=== PATIENT | male | born 1965 | race Two or more races ===

== ENCOUNTER 2017-07-25 20:43 | Inpatient (IN) | payer MEDICAID ==
[~2017-07-25] VITALS: Ht 162.6 cm; Wt 71.8 kg
[2017-07-25] MEDS ORDERED: octreotide inj. 1,250 MCG in normal saline 250ml IV soln 250 ML IV ONE (20:50)
[2017-07-25] MEDS ORDERED: pantoprazole 40 MG vial IV ONE (20:50)
[2017-07-25] MEDS ORDERED: normal saline 1000ML IV soln IV ONE (20:50)
[2017-07-25] MEDS ORDERED: octreotide 100mcg/1 ml ampule IV ONE (21:05)
[2017-07-25 21:13] LABS: BASOPHILS % (AUTO) 0.4 % (0-1); EOSINOPHILS # (AUTO) 0.2 X10'3 (0-0.9); EOSINOPHILS % (AUTO) 2.4 % (0-6); HEMOGLOBIN 7.1 g/dl (14.0-17.9); LYMPHOCYTES # (AUTO) 3.5 X10'3 (1.1-4.8); LYMPHOCYTES % (AUTO) 39.1 % (21-51); MEAN CORPUSCULAR HEMOGLOBIN 28.1 PG (27.0-31.0); MEAN CORPUSCULAR HGB CONC 32.4 % (33.0-36.5); MEAN CORPUSCULAR VOLUME 86.6 FL (78-98); MEAN PLATELET VOLUME 10.1 FL (7.4-10.4); MONOCYTES # (AUTO) 0.7 X10'3 (0-0.9); NEUTROPHILS # (AUTO) 4.5 X10'3 (1.8-7.7); NEUTROPHILS % (AUTO) 50.1 % (42-75); PLATELET COUNT 108 X10'3 (140-440); RED BLOOD COUNT 2.51 X10'6 (4.70-6.10); RED CELL DISTRIBUTION WIDTH 29.2 % (11.5-14.5); WHITE BLOOD COUNT 8.9 X10'3 (4.5-11.0)
[2017-07-25 21:22] LABS: HEMATOCRIT 21.8 % (42.0-52.0)
[2017-07-25] MEDS ORDERED: succinylcholine 20mg/ml inj IV ONE (21:23)
[2017-07-25 21:30] LABS: ALANINE AMINOTRANSFERASE 18 U/L (12-78); ALBUMIN/GLOBULIN RATIO 0.4 (1.1-1.5); ALKALINE PHOSPHATASE 146 IU/L (46-116); ANION GAP 10 (8-16); ASPARTATE AMINO TRANSFERASE 27 U/L (10-37); BILIRUBIN,TOTAL 1.6 MG/DL (0.1-1.0); BLOOD UREA NITROGEN 16 MG/DL (7-18); CALCIUM 7.9 MG/DL (8.5-10.1); CHLORIDE 106 MMOL/L (99-107); CREATININE 0.84 MG/DL (0.60-1.10); GLUCOSE 171 MG/DL (70-104); POTASSIUM 4.4 MMOL/L (3.5-5.1); SODIUM 138 MMOL/L (135-145); TOTAL CARBON DIOXIDE 22.4 MMOL/L (24-32); TOTAL PROTEIN 6.6 G/DL (6.4-8.2); eGFR > 90 ML/MIN
[2017-07-25] MEDS ORDERED: midazolam 100mg in NS 100ml 100 ML IV PRN ×2 (21:40→22:43)
[2017-07-25] MEDS ORDERED: etomidate 2mg/ml inj. IV ONE ×2 (22:15)
[2017-07-25] MEDS ORDERED: fentaNYL/PF 50MCG/1 ML 2ML syringe ONE (22:17)
[2017-07-25] MEDS ORDERED: MIDAZolam 5mg/ml 2ml vial ONE (22:18)
[2017-07-25] MEDS ORDERED: epiNEPHrine 0.1mg/ml 10ml syringe ONE (22:18)
[2017-07-25] MEDS: NORepinephrine 8mg/ 250ml NS 250 ML IV SCH (22:24)
[2017-07-25 22:30] LABS: ABG BASE EXCESS -10.7 mmol/L (-2.0-3.0); ABG OXYGEN SATURATION 98.7 % (95-98); ABG PCO2 (T) 32.1 mmHg (35.0-48.0); ABG PH (T) 7.286 (7.350-7.450); ABG PO2 (T) 180.3 mmHg (83-108); FCOHb 0.6 % (0.5-1.5); FMetHb 0.1 % (0.3-1.12); MINUTE VOLUME 15 L/min; PATIENT TEMPERATURE 36.7; PEEP 5 cm H2O; RESPIRATORY RATE 163 b/min; RESPIRATORY RATE (OBSERVED) 25 b/min; TIDAL VOLUME 425 mL; TOTAL HEMOGLOBIN 8.7 G/dl (14.0-18.0)
[2017-07-25 22:35] VITALS: BP 111/80
[2017-07-25] MEDS ORDERED: ondansetron/PF 4mg/2ml inj IV PRN (22:35)
[2017-07-25] MEDS ORDERED: potassium Cl 40MEQ/250ML bag 250 ML IV PRN (22:35)
[2017-07-25] MEDS: K, MAG and/or Phos replacement - Verify level? MC SCH (22:35)
[2017-07-25] MEDS ORDERED: potassium Cl 20 mEq SR tablet PO PRN ×2 (22:35)
[2017-07-25] MEDS ORDERED: morphine 2 MG/ML inj. syringe IV PRN ×2 (22:35)
[2017-07-25] MEDS ORDERED: potassium Cl 40MEQ/250ML bag 250 ML IV SCH (22:35)
[2017-07-25] MEDS: normal saline 1000ml 1,000 ML IV SCH (22:35)
[2017-07-25] MEDS ORDERED: acetaminophen 325mg tablet PO PRN ×2 (22:35)
[2017-07-25 22:42] LABS: CLARITY,URINE SLIGHTLY CLOUDY (Clear); COLOR,URINE YELLOW (Yellow); GLUCOSE, URINE NEGATIVE (Neg); KETONES,URINE TRACE mg/dl (Neg); LEUKOCYTE ESTERASE ,URINE NEGATIVE (Neg); NITRITES, URINE NEGATIVE (Neg); OCCULT BLOOD,URINE SMALL (Neg); PROTEIN,URINE 30 mg/dl (Neg); UROBILINOGEN,URINE 0.2 E.U/dL (0.2-1.0)
[2017-07-25] MEDS ORDERED: FENTANYL-0.9 % NACL/PF 100 ML IV PRN (22:43)
[2017-07-25 22:44] LABS: UA COLLECTION TYPE FOLEY CATH
[2017-07-25] MEDS ORDERED: ipratropium/albuterol 3ml nebule NEB PRN (22:45)
[2017-07-25 22:51] LABS: INR 1.7 INR; PARTIAL THROMBOPLASTIN TIME 42 SECONDS (22-32); PROTHROMBIN TIME 17.2 SECONDS (9.0-12.0)
[2017-07-25 22:57] LABS: WBC,URINE 0-4 /HPF (0-4)
[2017-07-25 22:58] LABS: MUCUS STRANDS MODERATE /LPF (Neg); SPERM MODERATE /HPF (NEGATIVE)
[2017-07-25 22:59] LABS: SQUAMOUS EPITHELIAL CELL,UR NONE SEEN /LPF (FEW); TRANSITIONAL EPI CELLS,URINE FEW /HPF
[2017-07-25 23:01] LABS: AMORPHOUS URATES 2+; BACTERIA,URINE NONE SEEN /HPF (Neg); HYALINE CASTS 0-3 /LPF (NEGATIVE)
[2017-07-25 23:12] LABS: ANISOCYTOSIS 3+; ELLIPTOCYTES FEW; PLATELET ESTIMATE DECREASED; POLYCHROMASIA FEW
[2017-07-25] MEDS ORDERED: tranexamic acid inj. 1,000 MG in normal saline 100ml IV soln 90 ML IV ONE (23:15)
[2017-07-25] MEDS ORDERED: tranexamic acid 100mg/ml inj. ONE (23:16)
[2017-07-25 23:21] VITALS: BP 54/32
[2017-07-25 23:26] LABS: RENAL CELLS, URINE MODERATE /HPF
[2017-07-25 23:30] VITALS: BP 89/57
[2017-07-25 23:35] VITALS: BP 93/64
[2017-07-25 23:44] VITALS: BP 110/78
[2017-07-25 23:52] VITALS: BP 112/81
[2017-07-26] VITALS (27 sets, daily range): BP systolic 61–164; BP diastolic 39–111
[2017-07-26 00:08] LABS: HEMATOCRIT 33.1 % (42.0-52.0); HEMOGLOBIN 11.2 g/dl (14.0-17.9); MEAN CORPUSCULAR HEMOGLOBIN 29.6 PG (27.0-31.0); MEAN CORPUSCULAR HGB CONC 33.7 % (33.0-36.5); MEAN CORPUSCULAR VOLUME 87.8 FL (78-98); MEAN PLATELET VOLUME 9.8 FL (7.4-10.4); PLATELET COUNT 54 X10'3 (140-440); RED BLOOD COUNT 3.78 X10'6 (4.70-6.10); RED CELL DISTRIBUTION WIDTH 16.2 % (11.5-14.5); WHITE BLOOD COUNT 16.6 X10'3 (4.5-11.0)
[2017-07-26 01:59] LABS: HEMATOCRIT 29.9 % (42.0-52.0); HEMOGLOBIN 10.3 g/dl (14.0-17.9); MEAN CORPUSCULAR HGB CONC 34.5 % (33.0-36.5); MEAN CORPUSCULAR VOLUME 86.8 FL (78-98); MEAN PLATELET VOLUME 8.3 FL (7.4-10.4); PLATELET COUNT 153 X10'3 (140-440); RED BLOOD COUNT 3.44 X10'6 (4.70-6.10); RED CELL DISTRIBUTION WIDTH 15.8 % (11.5-14.5); WHITE BLOOD COUNT 23.8 X10'3 (4.5-11.0)
[2017-07-26] MEDS ORDERED: piperacillin/tazo 3.375gm/50ml 50 ML IV SCH (02:00)
[2017-07-26] MEDS: acetaminophen 650mg rectal suppository RC PRN (02:02)
[2017-07-26 02:15] LABS: ALANINE AMINOTRANSFERASE 45 U/L (12-78); ALBUMIN 1.9 G/DL (3.4-5.0); ALKALINE PHOSPHATASE 106 IU/L (46-116); ASPARTATE AMINO TRANSFERASE 85 U/L (10-37); BILIRUBIN,TOTAL 4.4 MG/DL (0.1-1.0); BLOOD UREA NITROGEN 20 MG/DL (7-18); BUN/CREATININE RATIO 15.5 (5.4-32.0); CALCIUM 6.7 MG/DL (8.5-10.1); CHLORIDE 109 MMOL/L (99-107); CREATININE 1.29 MG/DL (0.60-1.10); GLUCOSE 162 MG/DL (70-104); MAGNESIUM 1.4 MG/DL (1.5-2.4); TOTAL CARBON DIOXIDE 18.2 MMOL/L (24-32); eGFR 59 ML/MIN
[2017-07-26 02:28] LABS: ALBUMIN/GLOBULIN RATIO 0.5 (1.1-1.5); ANION GAP 8 (8-16); PHOSPHORUS 5.2 MG/DL (2.3-4.5); SODIUM 135 MMOL/L (135-145); TOTAL PROTEIN 5.6 G/DL (6.4-8.2)
[2017-07-26 02:32] LABS: POTASSIUM 7.4 MMOL/L (3.5-5.1)
[2017-07-26 03:00] LABS: TOTAL CELLS COUNTED 100
[2017-07-26 03:05] LABS: ANISOCYTOSIS 1+; BURR CELLS 1+; PLATELET ESTIMATE NORMAL; POLYCHROMASIA 2+
[2017-07-26 03:06] LABS: LARGE PLATELETS FEW
[2017-07-26 03:09] LABS: ALANINE AMINOTRANSFERASE 45 U/L (12-78); ALBUMIN 1.6 G/DL (3.4-5.0); ALKALINE PHOSPHATASE 91 IU/L (46-116); ANION GAP 12 (8-16); ASPARTATE AMINO TRANSFERASE 81 U/L (10-37); BILIRUBIN,TOTAL 4.4 MG/DL (0.1-1.0); BLOOD UREA NITROGEN 22 MG/DL (7-18); BUN/CREATININE RATIO 16.5 (5.4-32.0); CHLORIDE 112 MMOL/L (99-107); CREATININE 1.33 MG/DL (0.60-1.10); GLUCOSE 116 MG/DL (70-104); SODIUM 140 MMOL/L (135-145); TOTAL CARBON DIOXIDE 16.5 MMOL/L (24-32); eGFR 57 ML/MIN
[2017-07-26 03:14] LABS: POTASSIUM 6.2 MMOL/L (3.5-5.1)
[2017-07-26 03:15] LABS: ALBUMIN/GLOBULIN RATIO 0.6 (1.1-1.5); TOTAL PROTEIN 4.4 G/DL (6.4-8.2)
[2017-07-26] MEDS ORDERED: dextrose 50%-water 50ml dispensing syringe IV ONE ×4 (03:30→21:55)
[2017-07-26] MEDS ORDERED: insulin regular, human 10 units/0.1 ml syringe IV ONE ×2 (03:30→21:55)
[2017-07-26] MEDS ORDERED: calcium chloride 100 MG/1 ML inj IV ONE ×2 (03:30→05:24)
[2017-07-26] MEDS ORDERED: sodium bicarbonate (8.4%) 1 mEq/ml syringe IV ONE ×2 (03:30→21:55)
[2017-07-26 04:15] LABS: ABG BASE EXCESS -11.6 mmol/L (-2.0-3.0); ABG OXYGEN SATURATION 97.5 % (95-98); ABG PCO2 (T) 27.9 mmHg (35.0-48.0); ABG PH (T) 7.295 (7.350-7.450); ABG PO2 (T) 122.3 mmHg (83-108); ALLEN'S TEST Positive; FCOHb 0.3 % (0.5-1.5); FMetHb 0.3 % (0.3-1.12); FO2Hb 96.9 % (94-100); MINUTE VOLUME 12 L/min; PATIENT TEMPERATURE 38.9; PEEP 5 cm H2O; RESPIRATORY RATE 16 b/min; RESPIRATORY RATE (OBSERVED) 20 b/min; TOTAL HEMOGLOBIN 10.5 G/dl (14.0-18.0)
[2017-07-26 05:00] LABS: HEMATOCRIT 25.3 % (42.0-52.0); HEMOGLOBIN 8.7 g/dl (14.0-17.9); MEAN CORPUSCULAR HGB CONC 34.3 % (33.0-36.5); MEAN CORPUSCULAR VOLUME 87.5 FL (78-98); MEAN PLATELET VOLUME 8.5 FL (7.4-10.4); PLATELET COUNT 122 X10'3 (140-440); RED BLOOD COUNT 2.89 X10'6 (4.70-6.10); RED CELL DISTRIBUTION WIDTH 16.1 % (11.5-14.5)
[2017-07-26 05:04] LABS: WHITE BLOOD COUNT 31.2 X10'3 (4.5-11.0)
[2017-07-26] MEDS ORDERED: hydrocortisone sod succ/PF 100mg/2ml inj. IV ONE (05:35)
[2017-07-26] MEDS ORDERED: NORepinephrine 8mg/ 250ml NS 250 ML IV SCH (05:40)
[2017-07-26] MEDS ORDERED: diphenhydrAMINE 50 mg/ml inj IV ONE (05:40)
[2017-07-26] MEDS: octreotide inj. 1,250 MCG in normal saline 250ml IV soln 243.75 ML IV SCH ×2 (06:30→20:51)
[2017-07-26] MEDS: lactobacillus rhamnosus 10,000 MMU CELLS/CAPSULE PO SCH ×2 (07:30→16:14)
[2017-07-26] MEDS: K, MAG and/or Phos replacement - Verify level? MC SCH (08:00)
[2017-07-26] MEDS: normal saline 1000ml 1,000 ML IV SCH ×2 (08:35→18:35)
[2017-07-26] MEDS: metroNIDAZOLE-Flagyl 500mg/NS 100 ML IV SCH ×2 (09:37→16:13)
[2017-07-26] MEDS: NORepinephrine 8mg/ 250ml NS 250 ML IV SCH ×2 (10:00→20:51)
[2017-07-26] MEDS ORDERED: LIDOcaine 1%/PF (10mg/ml) 5ml vial ONE (11:02)
[2017-07-26] MEDS ORDERED: iohexol 300 MG/1 ML 50ml polymer ONE (11:02)
[2017-07-26 11:34] LABS: HEMATOCRIT 27.3 % (42.0-52.0); HEMOGLOBIN 9.5 g/dl (14.0-17.9); MEAN CORPUSCULAR HEMOGLOBIN 30.4 PG (27.0-31.0); MEAN CORPUSCULAR HGB CONC 34.7 % (33.0-36.5); MEAN CORPUSCULAR VOLUME 87.4 FL (78-98); MEAN PLATELET VOLUME 8.7 FL (7.4-10.4); PLATELET COUNT 161 X10'3 (140-440); RED BLOOD COUNT 3.12 X10'6 (4.70-6.10)
[2017-07-26 11:43] LABS: ALBUMIN 1.8 G/DL (3.4-5.0); ANION GAP 14 (8-16); BLOOD UREA NITROGEN 28 MG/DL (7-18); BUN/CREATININE RATIO 11.6 (5.4-32.0); CALCIUM 8.3 MG/DL (8.5-10.1); CHLORIDE 113 MMOL/L (99-107); CREATININE 2.41 MG/DL (0.60-1.10); GLUCOSE 87 MG/DL (70-104); POTASSIUM 6.7 MMOL/L (3.5-5.1); SODIUM 141 MMOL/L (135-145); TOTAL CARBON DIOXIDE 14.5 MMOL/L (24-32); eGFR 29 ML/MIN
[2017-07-26 14:56] LABS: HEMOGLOBIN A1C 5.1 % (4.5-6.2)
[2017-07-26] MEDS: levoFLOXACIN-Levaquin 750MG/D5 150 ML IV SCH (16:13)
[2017-07-26] MEDS ORDERED: dextrose 5%-water 1,000 ML IV SCH (16:55)
[2017-07-26 20:51] LABS: BASOPHILS % (AUTO) 0 % (0-1); EOSINOPHILS % (AUTO) 0 % (0-6); LYMPHOCYTES # (AUTO) 3.5 X10'3 (1.1-4.8); LYMPHOCYTES % (AUTO) 6.2 % (21-51); MEAN CORPUSCULAR HEMOGLOBIN 30.3 PG (27.0-31.0); MEAN CORPUSCULAR HGB CONC 34.6 % (33.0-36.5); MEAN CORPUSCULAR VOLUME 87.7 FL (78-98); MEAN PLATELET VOLUME 9.1 FL (7.4-10.4); MONOCYTES # (AUTO) 3.1 X10'3 (0-0.9); MONOCYTES % (AUTO) 5.5 % (2-12); NEUTROPHILS # (AUTO) 49.9 X10'3 (1.8-7.7); NEUTROPHILS % (AUTO) 88.3 % (42-75); PLATELET COUNT 187 X10'3 (140-440); RED BLOOD COUNT 3.31 X10'6 (4.70-6.10); RED CELL DISTRIBUTION WIDTH 16.7 % (11.5-14.5)
[2017-07-26 21:02] LABS: WHITE BLOOD COUNT 56.5 X10'3 (4.5-11.0)
[2017-07-26 21:20] LABS: TOTAL CELLS COUNTED 100
[2017-07-26 21:21] LABS: ANISOCYTOSIS 1+; BURR CELLS 1+; PLATELET ESTIMATE NORMAL
[2017-07-26 21:22] LABS: ACANTHOCYTES FEW; POLYCHROMASIA 2+; SCHISTOCYTES FEW
[2017-07-26 21:24] LABS: ALANINE AMINOTRANSFERASE 156 U/L (12-78); ALBUMIN 1.8 G/DL (3.4-5.0); ALKALINE PHOSPHATASE 76 IU/L (46-116); ANION GAP 21 (8-16); ASPARTATE AMINO TRANSFERASE 318 U/L (10-37); BILIRUBIN,TOTAL 5.9 MG/DL (0.1-1.0); BLOOD UREA NITROGEN 36 MG/DL (7-18); BUN/CREATININE RATIO 14.8 (5.4-32.0); CALCIUM 8.4 MG/DL (8.5-10.1); CHLORIDE 110 MMOL/L (99-107); CREATININE 2.44 MG/DL (0.60-1.10); GLUCOSE 98 MG/DL (70-104); MAGNESIUM 1.4 MG/DL (1.5-2.4); SODIUM 140 MMOL/L (135-145); eGFR 28 ML/MIN
[2017-07-26 21:42] LABS: ALBUMIN/GLOBULIN RATIO 0.5 (1.1-1.5); PHOSPHORUS 5.9 MG/DL (2.3-4.5); TOTAL PROTEIN 5.3 G/DL (6.4-8.2)
[2017-07-26 21:45] LABS: POTASSIUM 7.7 MMOL/L (3.5-5.1)
[2017-07-26 21:46] LABS: TOTAL CARBON DIOXIDE 9.4 MMOL/L (24-32)
[2017-07-26] MEDS ORDERED: CALCIUM GLUCONATE 1 GM in NORMAL SALINE 100ml IV.SOLN IV ONE (22:05)
[2017-07-26] MEDS: sodium bicarbonate (8.4%) inj. 150 MEQ in dextrose 5%-water 1,000 ML IV SCH (22:30)
[2017-07-27] VITALS (16 sets, daily range): BP systolic 41–127; BP diastolic 29–78
[2017-07-27] MEDS: metroNIDAZOLE-Flagyl 500mg/NS 100 ML IV SCH ×2 (00:34→07:49)
[2017-07-27] MEDS: mineral oil/petrolatum ophthal oint EACHEYE SCH ×2 (02:00→07:52)
[2017-07-27 02:21] LABS: ABG BASE EXCESS -15.9 mmol/L (-2.0-3.0); ABG HCO3 7.7 mmol/L (22.0-26.0); ABG OXYGEN SATURATION 95.7 % (95-98); ABG PCO2 (T) 15.1 mmHg (35.0-48.0); ABG PO2 (T) 92.5 mmHg (83-108); ALLEN'S TEST Positive; FCOHb 0.3 % (0.5-1.5); FMetHb 0.5 % (0.3-1.12); FO2Hb 94.9 % (94-100); MINUTE VOLUME 20 L/min; PEEP 5 cm H2O; RESPIRATORY RATE (OBSERVED) 30 b/min
[2017-07-27 02:24] LABS: HEMOGLOBIN 8.7 g/dl (14.0-17.9); MEAN CORPUSCULAR VOLUME 90.3 FL (78-98)
[2017-07-27 02:27] LABS: HEMATOCRIT 25.5 % (42.0-52.0); MEAN CORPUSCULAR HEMOGLOBIN 30.7 PG (27.0-31.0); MEAN PLATELET VOLUME 9.5 FL (7.4-10.4); PLATELET COUNT 155 X10'3 (140-440); RED BLOOD COUNT 2.82 X10'6 (4.70-6.10)
[2017-07-27 02:39] LABS: ALANINE AMINOTRANSFERASE 231 U/L (12-78); ALBUMIN 1.6 G/DL (3.4-5.0); ALKALINE PHOSPHATASE 67 IU/L (46-116); ANION GAP 23 (8-16); ASPARTATE AMINO TRANSFERASE 494 U/L (10-37); BILIRUBIN,TOTAL 5.5 MG/DL (0.1-1.0); BLOOD UREA NITROGEN 40 MG/DL (7-18); BUN/CREATININE RATIO 16.3 (5.4-32.0); CALCIUM 8.1 MG/DL (8.5-10.1); CHLORIDE 109 MMOL/L (99-107); CREATININE 2.45 MG/DL (0.60-1.10); GLUCOSE 104 MG/DL (70-104); MAGNESIUM 1.4 MG/DL (1.5-2.4); SODIUM 143 MMOL/L (135-145); eGFR 28 ML/MIN
[2017-07-27] MEDS ORDERED: LORazepam 2 mg/ml vial ONE ×4 (02:45→03:03)
[2017-07-27 02:46] LABS: WHITE BLOOD COUNT 47.5 X10'3 (4.5-11.0)
[2017-07-27] MEDS ORDERED: albuterol 2.5 MG/3 ML nebule ONE (02:48)
[2017-07-27 02:51] LABS: POTASSIUM 7.3 MMOL/L (3.5-5.1)
[2017-07-27] MEDS ORDERED: levetiracetam 100mg/ml inj IV ONE (02:57)
[2017-07-27 03:03] LABS: ALBUMIN/GLOBULIN RATIO 0.5 (1.1-1.5); PHOSPHORUS 6.3 MG/DL (2.3-4.5); TOTAL PROTEIN 4.6 G/DL (6.4-8.2)
[2017-07-27 03:04] LABS: NUCLEATED RED BLOOD CELLS 1 /100WBC (0-0); TOTAL CELLS COUNTED 100
[2017-07-27 03:05] LABS: ANISOCYTOSIS 1+; PLATELET ESTIMATE NORMAL
[2017-07-27 03:06] LABS: BURR CELLS 2+; POLYCHROMASIA 2+
[2017-07-27] MEDS: acetaminophen 650mg rectal suppository RC PRN (03:13)
[2017-07-27 03:21] LABS: INR 3.4 INR
[2017-07-27 03:24] LABS: PARTIAL THROMBOPLASTIN TIME 113 SECONDS (22-32)
[2017-07-27 05:34] LABS: HEMATOCRIT 24.9 % (42.0-52.0); HEMOGLOBIN 8.5 g/dl (14.0-17.9); MEAN CORPUSCULAR HEMOGLOBIN 30.2 PG (27.0-31.0); MEAN CORPUSCULAR HGB CONC 34.1 % (33.0-36.5); MEAN CORPUSCULAR VOLUME 88.3 FL (78-98); MEAN PLATELET VOLUME 9.3 FL (7.4-10.4); PLATELET COUNT 122 X10'3 (140-440); RED BLOOD COUNT 2.82 X10'6 (4.70-6.10); RED CELL DISTRIBUTION WIDTH 16.4 % (11.5-14.5)
[2017-07-27 06:29] LABS: INR 3.2 INR; PROTHROMBIN TIME 31.4 SECONDS (9.0-12.0)
[2017-07-27] MEDS ORDERED: epiNEPHrine inj 5 MG, calcium chloride inj. 1,000 MG in normal saline 250ml IV soln 235 ML IV PRN (06:40)
[2017-07-27 06:50] LABS: PARTIAL THROMBOPLASTIN TIME 121 SECONDS (22-32)
[2017-07-27 07:15] LABS: CHLORIDE 110 MMOL/L (99-107); GLUCOSE 117 MG/DL (70-104); SODIUM 145 MMOL/L (135-145)
[2017-07-27 07:16] LABS: ALANINE AMINOTRANSFERASE 360 U/L (12-78); ALBUMIN 1.3 G/DL (3.4-5.0); ALKALINE PHOSPHATASE 84 IU/L (46-116); ANION GAP 25 (8-16); ASPARTATE AMINO TRANSFERASE 871 U/L (10-37); BILIRUBIN,TOTAL 4.8 MG/DL (0.1-1.0); BLOOD UREA NITROGEN 40 MG/DL (7-18); BUN/CREATININE RATIO 14.5 (5.4-32.0); CALCIUM 8.9 MG/DL (8.5-10.1); CREATININE 2.76 MG/DL (0.60-1.10); MAGNESIUM 1.7 MG/DL (1.5-2.4); eGFR 24 ML/MIN
[2017-07-27 07:18] LABS: PHOSPHORUS 8.8 MG/DL (2.3-4.5)
[2017-07-27 07:19] LABS: ALBUMIN/GLOBULIN RATIO 0.5 (1.1-1.5); POTASSIUM 7.2 MMOL/L (3.5-5.1)
[2017-07-27] MEDS: lactobacillus rhamnosus 10,000 MMU CELLS/CAPSULE PO SCH (07:30)
[2017-07-27] MEDS ORDERED: sodium bicarbonate (8.4%) 1 mEq/ml syringe IV ONE (07:45)
[2017-07-27] MEDS: normal saline 1000ml 1,000 ML IV SCH (07:49)
[2017-07-27] MEDS: levoFLOXACIN-Levaquin 750MG/D5 150 ML IV SCH ×2 (07:49→09:25)
[2017-07-27] MEDS: K, MAG and/or Phos replacement - Verify level? MC SCH (08:00)
[2017-07-27] MEDS: NORepinephrine 8mg/ 250ml NS 250 ML IV SCH (08:11)
[2017-07-27] MEDS ORDERED: LORazepam 2 mg/ml vial IV PRN (09:10)
[2017-07-27] MEDS ORDERED: morphine 4 MG/ML inj SYRINge IV PRN (09:10)
[2017-07-27] MEDS: sodium bicarbonate (8.4%) inj. 150 MEQ in dextrose 5%-water 1,000 ML IV SCH (09:35)
== END 2017-07-27 12:54 | disposition expired | DRG 242 ==
LOC: ER 20:44 → ED HOLD 22:35 → CICU 2S 07-26 00:31
PROVIDERS: ADMIT Internal Medicine Critical Care Medicine
PROC: 06L38CZ Occlusion of Esophageal Vein with Extraluminal Device, Via Natural or Artificial Opening Endoscopic (ICD-10-PCS; principal; 2017-07-25)
PROC: 5A1945Z Respiratory Ventilation, 24-96 Consecutive Hours (ICD-10-PCS; 2017-07-25)
PROC: 30233K1 Transfusion of Nonautologous Frozen Plasma into Peripheral Vein, Percutaneous Approach (ICD-10-PCS; 2017-07-25)
PROC: 30233N1 Transfusion of Nonautologous Red Blood Cells into Peripheral Vein, Percutaneous Approach (ICD-10-PCS; 2017-07-25)
PROC: 02HV33Z Insertion of Infusion Device into Superior Vena Cava, Percutaneous Approach (ICD-10-PCS; 2017-07-25)
PROC: 0BH17EZ Insertion of Endotracheal Airway into Trachea, Via Natural or Artificial Opening (ICD-10-PCS; 2017-07-25)
PROC: 30233R1 Transfusion of Nonautologous Platelets into Peripheral Vein, Percutaneous Approach (ICD-10-PCS; 2017-07-26)
DX: I85.01 Esophageal varices with bleeding (principal); J96.00 Acute respiratory failure, unspecified whether with hypoxia or hypercapnia; K72.01 Acute and subacute hepatic failure with coma; R57.1 Hypovolemic shock; I81 Portal vein thrombosis; E87.5 Hyperkalemia; K76.6 Portal hypertension; N17.9 Acute kidney failure, unspecified; I46.9 Cardiac arrest, cause unspecified; D64.9 Anemia, unspecified; E11.9 Type 2 diabetes mellitus without complications; I10 Essential (primary) hypertension; F10.20 Alcohol dependence, uncomplicated; K70.30 Alcoholic cirrhosis of liver without ascites; K72.10 Chronic hepatic failure without coma; Z51.5 Encounter for palliative care; Z88.0 Allergy status to penicillin
CPT/HCPCS: 36415; 36556; 36600; 43244; 71045; 80048; 80053; 81001; 82140; 82803; 82948; 83036; 83735; 84100; 85018; 85025; 85027; 85384; 85610; 85730; 86885; 86900; 86901; 86920; 87070; 93005; 93975; 94002; 94003; 94640; 94760; 96365; 96375; 99291; 99292; A6213; A7015; C1751; C1758; C9113; J0171; J0330; J0610; J1200; J1720; J1815; J1953; J1956; J2001; J2060; J2250; J2354; J3010; J3490; J7030; J7070; P9016; P9035; P9059; Q9967